=== PATIENT | male | born 1990 | race Two or more races ===

== ENCOUNTER 2020-06-13 15:01 | Emergency (ER) | payer OTHER ==
--- NOTE | 2020-06-13 15:25 | NUR ---
CALLED IN ED WAITING ROOM. NO RESPONSE
--- NOTE | 2020-06-13 16:06 | NUR ---
CALLED IN ED WAITING ROOM. NO RESPONSE
== END 2020-06-13 16:08 | disposition left against medical advice (07) ==
LOC: ER 15:06
DX: Z20.828 Contact with and (suspected) exposure to other viral communicable diseases (principal); Z53.21 Procedure and treatment not carried out due to patient leaving prior to being seen by health care provider

== ENCOUNTER 2020-06-13 16:28 | Emergency (ER) | payer OTHER ==
[~2020-06-13] VITALS: Ht 162.6 cm; Wt 77.1 kg
[2020-06-13 16:39] VITALS: BP 125/84
== END 2020-06-13 17:07 | disposition home or self-care (01) ==
LOC: ER 16:29
DX: Z20.828 Contact with and (suspected) exposure to other viral communicable diseases (principal)
CPT/HCPCS: 87426; 99283; C9803; U0003